=== PATIENT | female | born 1980 | race Two or more races ===

== ENCOUNTER 2021-08-11 16:25 | Emergency (ER) | payer OTHER ==
[~2021-08-11] VITALS: Ht 157.5 cm; Wt 65.8 kg
[2021-08-11] MEDS ORDERED: IRON325 MG (16:36)
[2021-08-11] MEDS ORDERED: INFED50 MG/ML (16:37)
[2021-08-11] MEDS ORDERED: ENDOMETRIN100 MG (16:37)
== END 2021-08-11 21:27 | disposition home or self-care (01) ==
LOC: ER 16:25
DX: N93.9 Abnormal uterine and vaginal bleeding, unspecified (principal); E86.0 Dehydration; G43.909 Migraine, unspecified, not intractable, without status migrainosus

== ENCOUNTER 2025-03-14 22:31 | Emergency (ER) | payer OTHER ==
[~2025-03-14] VITALS: Ht 157.5 cm; Wt 77.1 kg
[~2025-03-14 22:31] MED LIST: ENDOMETRIN100 MG; INFED50 MG/ML; IRON325 MG
[2025-03-15] MEDS ORDERED: KETOROLAC TROMETHAMINE 60 MG VIAL IM STA (00:51)
[2025-03-15] MEDS ORDERED: KETOROLAC TROMETHAMINE 60 MG VIAL IM ONE (00:52)
[2025-03-15] MEDS ORDERED: MIDAZOLAM HCL/PF 5 MG/ML VIAL IV STA (01:18)
[2025-03-15] MEDS ORDERED: RINGERS SOLUTION,LACTATED 1,000 ML IV ONE (01:30)
[2025-03-15] MEDS ORDERED: KETO10TA2 PO (02:27)
== END 2025-03-15 04:11 ==
LOC: ER 22:47
DX: S59.802A Other specified injuries of left elbow, initial encounter (principal); S53.105A Unspecified dislocation of left ulnohumeral joint, initial encounter; W19.XXXA Unspecified fall, initial encounter; Y93.89 Activity, other specified; Y92.098 Other place in other non-institutional residence as the place of occurrence of the external cause; Y99.8 Other external cause status

== ENCOUNTER 2025-03-23 13:45 | Outpatient (CLI) | payer OTHER ==
[~2025-03-23 13:45] MED LIST changes: +KETO10TA2 PO
== END 2025-03-23 13:52 | disposition home or self-care (01) ==
LOC: RAD 13:45
PROVIDERS: ATTEND Orthopaedic Surgery Hand Surgery
DX: Z01.818 Encounter for other preprocedural examination (principal)

== ENCOUNTER 2025-03-27 07:41 | Outpatient (CLI) | payer OTHER ==
[2025-03-27 08:49] LABS: BASO % 0.5 % (0.1-1.2); EOS # 0.24 (0.04-0.54); EOS % 3.0 % (0.7-7.0); LYMPH # 1.74 (1.18-3.74); LYMPH % 21.5 % (19.3-53.1); MEAN PLATELET VOLUME 10.50 fl (9.4-12.4); MONO # 0.50 (0.24-0.82); MONO % 6.2 % (4.7-12.5); NEUT # 5.55 (1.56-6.13); NEUT % 68.6 % (34.0-71.1); RED CELL DISTRIBUTION WIDTH 13.4 % (11.6-14.4)
[2025-03-27 09:16] LABS: INR 1.11
[2025-03-27 09:28] LABS: BUN CREA RATIO 19.0 (7.0-25.0); CREATININE SERUM 0.67 mg/dL (0.55-1.02); GFR 95.61; GLUCOSE FASTING 85.0 mg/dL (65-100); OSMOLALITY SERUM 284.0 MOSM/KG (275-295)
== END 2025-03-27 07:45 | disposition home or self-care (01) ==
LOC: LAB 07:41
PROVIDERS: ATTEND Orthopaedic Surgery Hand Surgery
DX: D68.9 Coagulation defect, unspecified (principal); E11.9 Type 2 diabetes mellitus without complications; Z01.818 Encounter for other preprocedural examination

== ENCOUNTER 2025-05-06 08:05 | Outpatient (CLI) | payer OTHER | END 2025-05-06 08:12 | disposition home or self-care (01) | LOC: MAMO-SONO 08:05 | PROVIDERS: ATTEND Specialist | DX: N60.01 Solitary cyst of right breast (principal); N60.02 Solitary cyst of left breast ==

== ENCOUNTER 2025-05-11 12:04 | Outpatient (CLI) | payer OTHER | END 2025-05-11 12:05 | disposition home or self-care (01) | LOC: RAD 12:04 | DX: S52.122A Displaced fracture of head of left radius, initial encounter for closed fracture (principal) ==

== ENCOUNTER → 2025-05-21 08:46 | Outpatient (CLI) | payer OTHER ==
[2025-05-21 09:18] LABS: URINE APPEARANCE Clear; URINE BILIRRUBIN Negative (NEGATIVE); URINE BLOOD Negative; URINE COLOR Yellow; URINE GLUCOSE Negative (NEGATIVE); URINE KETONE Negative (NEGATIVE); URINE LEUKOCYTE Negative; URINE NITRATE Negative; URINE PROTEIN Negative (NEGATIVE); URINE UROBILINOGEN 0.2 E.U./dl
[2025-05-21 09:19] LABS: URINE BACTERIA 458.4 uL (0.0-1933); URINE EPITHELIAL CELLS 2.1 uL (0.0-38.8); URINE RBC 6.1 uL (0.0-20.8); URINE WBC 4.9 uL (0.0-23.2)
[2025-05-21 09:20] LABS: URINE CAST 0.00 uL (0.0-1.40)
[2025-05-21 10:19] LABS: ALT/SGPT 19.0 U/L (12-78); AST/SGOT 16.0 U/L (15-37); BILIRUBIN TOTAL 0.45 mg/dL (0.3-1.2); BUN CREA RATIO 22.0 (7.0-25.0); CHOL HDL RATIO 2.4 (0-5.0); CREATININE SERUM 0.65 mg/dL (0.55-1.02); GFR 98.57; GLOBULINA 3.7 G/DL (2.4-3.5); GLUCOSE FASTING 89.0 mg/dL (65-100); HDL 58.0 mg/dl (40-60); LDL 74.0 mg/dl (0-130); OSMOLALITY SERUM 285.0 MOSM/KG (275-295); TSH 0.881 uIU/mL (0.358-3.74); VLDL 9.0 (0-39)
[2025-05-21 10:38] LABS: BASO % 0.5 % (0.1-1.2); EOS # 0.46 (0.04-0.54); EOS % 6.1 % (0.7-7.0); LYMPH # 1.67 (1.18-3.74); LYMPH % 22.2 % (19.3-53.1); MEAN PLATELET VOLUME 11.40 fl (9.4-12.4); MONO # 0.47 (0.24-0.82); MONO % 6.3 % (4.7-12.5); NEUT # 4.87 (1.56-6.13); NEUT % 64.8 % (34.0-71.1); RED CELL DISTRIBUTION WIDTH 13.4 % (11.6-14.4)
[2025-05-21 16:33] LABS: ob NEGATIVE (NEGATIVE)
== END | disposition home or self-care (01) ==
LOC: LAB 08:46
PROVIDERS: ATTEND Specialist
DX: E03.9 Hypothyroidism, unspecified (principal); E16.2 Hypoglycemia, unspecified; E78.5 Hyperlipidemia, unspecified; E55.9 Vitamin D deficiency, unspecified; Z12.11 Encounter for screening for malignant neoplasm of colon; N91.1 Secondary amenorrhea; E22.1 Hyperprolactinemia

== ENCOUNTER 2025-08-02 11:46 | Outpatient (CLI) | payer OTHER | END 2025-08-02 11:52 | disposition home or self-care (01) | LOC: RAD 11:46 | PROVIDERS: ATTEND Orthopaedic Surgery Hand Surgery | DX: M77.12 Lateral epicondylitis, left elbow (principal) ==